=== PATIENT | female | born 1965 | race African-American/Black ===

== ENCOUNTER 2018-03-16 06:56 | Emergency (ER) | payer MEDICAID, OTHER ==
[~2018-03-16] VITALS: Ht 157.5 cm; Wt 68.7 kg
[2018-03-16] MEDS ORDERED: PROCHLORPERAZINE 10MG/2ML VIAL IV ONE (07:45)
[2018-03-16] MEDS ORDERED: DIPHENHYDRAMINE 50MG/ML VIAL IV ONE (07:45)
[2018-03-16 09:26] VITALS: BP 124/81
== END 2018-03-16 09:45 | disposition home or self-care (01) ==
LOC: ER 06:56
DX: R51 Headache (principal); F14.10 Cocaine abuse, uncomplicated; F15.10 Other stimulant abuse, uncomplicated; Z88.0 Allergy status to penicillin; Z98.890 Other specified postprocedural states
CPT/HCPCS: 96374; 96375; 99284; J0780; J1200; X7700; Z7610

== ENCOUNTER 2019-02-24 00:06 | Emergency (ER) | payer MEDICAID ==
[~2019-02-24] VITALS: Ht 162.6 cm; Wt 73.0 kg
[2019-02-24] MEDS ORDERED: KETOROLAC 30MG/ML VIAL IV STA (00:48)
[2019-02-24] MEDS ORDERED: SODIUM CHLORIDE 0.9% 1,000 ML IV ONE (00:48)
[2019-02-24] MEDS ORDERED: METOCLOPRAMIDE HCL 10MG/2ML VIAL IV ONE (01:00)
[2019-02-24 01:19] LABS: BASOPHILS % 1.2 % (0.0-2.0); EOSINOPHILS % 0.4 % (0.0-5.0); HEMATOCRIT. 38.5 % (36.0-48.0); HEMOGLOBIN. 13.4 g/dL (12.0-16.0); LYMPHOCYTES % 23.9 % (20.0-50.0); MEAN CORPUSCULAR HEMOGLOBIN 31.6 pg (28.0-32.0); MEAN CORPUSCULAR VOLUME 90.5 fL (81.0-99.0); MEAN PLATELET VOLUME 8.3 fl (7.4-10.4); MONOCYTES % 4.6 % (2.0-8.0); NEUTROPHILS % 69.9 % (40.0-76.0); PLATELET 229 x1000/uL (130-400); RED BLOOD CELL COUNT 4.25 mill/uL (4.2-5.4); RED CELL DISTRIBUTION WIDTH 12.9 % (11.6-14.6)
[2019-02-24 01:27] LABS: CHLORIDE 110 mEq/L (98-107)
[2019-02-24] MEDS ORDERED: SUMATRIPTAN SUCCINATE 25MG TABLET PO ONE (02:00)
[2019-02-24 02:11] VITALS: BP 130/67
== END 2019-02-24 02:22 | disposition home or self-care (01) ==
LOC: ER 00:06
DX: R51 Headache (principal); R07.9 Chest pain, unspecified; Z88.0 Allergy status to penicillin
CPT/HCPCS: 36415; 71045; 80053; 83880; 84484; 85025; 93005; 96374; 96375; 99284; J1885; J2765; J7030